=== PATIENT | male | born 1945 | race Caucasian/White ===

== ENCOUNTER 2018-09-29 22:59 | Emergency (ER) | payer MEDICARE ==
[2018-09-30] MEDS ORDERED: Clindamycin 150 MG CAP ONE (00:30)
== END 2018-09-30 00:49 | disposition home or self-care (01) ==
LOC: MADERS 22:59
DX: L03.116 Cellulitis of left lower limb (principal); E78.5 Hyperlipidemia, unspecified; I10 Essential (primary) hypertension; Z79.899 Other long term (current) drug therapy; Z79.82 Long term (current) use of aspirin
CPT/HCPCS: 99283